=== PATIENT | male | born 1970 | race Caucasian/White ===

== ENCOUNTER 2017-02-18 11:47 | Inpatient (IN) | payer BC ==
[2017-02-18] MEDS ORDERED: Sodium Chloride 0.9% 10 ML Syringe FLUSH PRN (12:11)
[2017-02-18] MEDS ORDERED: Sodium Chloride 0.9% 1,000 ML IV ONE (12:11)
--- NOTE | 2017-02-18 12:18 | EDM.PDOC ---
ED HPI GENERAL MEDICAL PROBLEM - General Chief Complaint: Upper Extremity Injury/Pain Stated Complaint: Right arm swelling Time Seen by Provider: 02/18/17 12:00 Source of Information: Reports: Patient, Provider (BRIDGET Fernández called report from [facility] ), RN Notes Reviewed History Limitations: Reports: No Limitations - History of Present Illness INITIAL COMMENTS - FREE TEXT/NARRATIVE: 46 year old male presents to the ER after evaluation at [facility]. He presented to the walk-in clinic today due to reports of right arm swelling and discolored urine for the past 2 days. He is normally very active and works out on a regular basis. He just started working out at a local [employer] gym in [facility]. On Wednesday, he figures he did close to 100 pull ups. He then developed right arm swelling and discomfort. He later noticed dark colored urine. This morning he says his urine was clear. He says his arm pain is well controlled with Aleve. He was initially evaluated at [facility] and found to have a significantly elevated Ck. He was sent here for further management and need for admission. He says his pain is currently well controlled. He has no abdominal pain, nausea, vomiting or diarrhea. He has no chest pain or SOB. Right Arm Pain Score (Numeric/FACES): 2 - Related Data Allergies Allergy/AdvReac Type Severity Reaction Status Date / Time No Known Allergies Allergy Verified 02/18/17 11:54 Home Meds: Home Meds Cyanocobalamin (Vitamin B12) [Vitamin B12] 1,000 mcg PO DAILY 02/18/17 [History] Fish Oil/[place]-3 Fatty Acids [Fish Oil] 1 gm PO DAILY 02/18/17 [History] Multivitamin [One Daily] 1 each PO DAILY 02/18/17 [History] Past Medical History - Past Health History Medical/Surgical History: Denies Medical/Surgical History Social & Family History - Tobacco Use Smoking Status *Q: Never Smoker - Recreational Drug Use Recreational Drug Use: No Review of Systems - Review of Systems Review Of Systems: See Below Constitutional: Reports: No Symptoms. Denies: Chills, Diaphoresis, Fever Respiratory: Reports: No Symptoms. Denies: Shortness of Breath, Cough Cardiovascular: Reports: No Symptoms. Denies: Chest Pain GI/Abdominal: Reports: No Symptoms. Denies: Abdominal Pain, Diarrhea, Nausea, Vomiting Genitourinary: Reports: Other (dark colored urine ). Denies: Dysuria Musculoskeletal: Reports: Arm Pain, Muscle Pain Skin: Reports: No Symptoms Neurological: Reports: No Symptoms. Denies: Confusion, Dizziness, Headache, Numbness, Tingling, Weakness ED EXAM, GENERAL - Physical Exam Exam: See Below Exam Limited By: No Limitations General Appearance: Alert, WD/WN, No Apparent Distress Respiratory/Chest: No Respiratory Distress, Lungs Clear, Normal Breath Sounds Cardiovascular: Normal Peripheral Pulses, Regular Rate, Rhythm, No Murmur GI/Abdominal: Normal Bowel Sounds, Soft, Non-Tender, No Distention Extremities: Other (swelling noted to right bicep. no bruising or increased warmth noted. CMS intact distally. ) Neurological: Alert, Oriented, Normal Cognition, No Motor/Sensory Deficits Skin Exam: Warm, Dry, Intact Course - Vital Signs Last Recorded V/S: Last Vital Signs Temp 97.1 F 02/18/17 11:55 Pulse 57 L 02/18/17 11:55 Resp BP 155/88 H 02/18/17 11:55 Pulse Ox 100 02/18/17 11:55 - Orders/Labs/Meds Orders: Active Orders 24 hr Category Date Time Status Patient Status [ADT] Routine ADT 02/18/17 13:44 Ordered Peripheral IV Care [RC] . DIRECTED Care 02/18/17 12:11 Active Sodium Chloride 0.9% [Saline Flush] Med 02/18/17 12:11 Active 10 ml FLUSH ASDIRECTED PRN Peripheral IV Insertion Adult [OM.PC] Stat Oth 02/18/17 12:11 Ordered Medication Orders Sodium Chloride (Saline Flush) 10 ml FLUSH ASDIRECTED PRN PRN Reason: Keep Vein Open Last Admin: 02/18/17 12:34 Dose: 10 ml Meds: Medications Generic Name Dose Route Start Last Admin Trade Name Freq PRN Reason Stop Dose Admin Sodium Chloride 10 ml 02/18/17 12:11 02/18/17 12:34 Saline Flush FLUSH 10 ml ASDIRECTED PRN Administration Keep Vein Open Discontinued Medications Generic Name Dose Route Start Last Admin Trade Name Freq PRN Reason Stop Dose Admin Sodium Chloride 1,000 mls @ 999 mls/hr 02/18/17 12:11 02/18/17 12:33 Normal Saline IV 02/18/17 13:11 999 mls/hr ONETIME ONE Administration - Re-Assessments/Exams Free Text/Narrative Re-Assessment/Exam: Initial labs performed at [facility]. CBC normal. WBC 5.4. H&H 15.4 and 44.8. Platelets 193. CMP: Glucose 85, BUN 18, creatinine 1.0, Na 142, K 4.6, Cl 104, Co2 26, Ca 9.4, AST 165, ALT 64, Bili 1.6, eGFR 80. UA: normal. CK was performed in our lab and came back at 8148. IV placed and 1 liter NS bolus initiated. 02/18/17 13:[address] iGl who has accepted care of patient. Patient meets inpatient criteria. Departure - Departure Time of Disposition: 13:47 Disposition: Admitted As Inpatient 65 Condition: Good Clinical Impression: Rhabdomyolysis Qualifiers: Rhabdomyolysis type: non-traumatic Qualified Code(s): M62.82 - Rhabdomyolysis - Discharge Information Referrals: Jet Leija MD [Primary Care Provider] - Forms: ED Department Discharge - My Orders Last 24 Hours: My Active Orders 02/18/17 12:11 Peripheral IV Care [RC] . DIRECTED Sodium Chloride 0.9% [Saline Flush] 10 ml FLUSH ASDIRECTED PRN Peripheral IV Insertion Adult [OM.PC] Stat 02/18/17 13:44 Patient Status [ADT] Routine - Assessment/Plan Last 24 Hours: My Active Orders 02/18/17 12:11 Peripheral IV Care [RC] . DIRECTED Sodium Chloride 0.9% [Saline Flush] 10 ml FLUSH ASDIRECTED PRN Peripheral IV Insertion Adult [OM.PC] Stat 02/18/17 13:44 Patient Status [ADT] Routine
[2017-02-18] MEDS ORDERED: Lactated Ringers 1,000 ML ONE (14:25)
[2017-02-18] MEDS ORDERED: Lactated Ringers 1,000 ML IV ONE ×3 (14:33→16:40)
--- NOTE | 2017-02-18 15:14 | PCM.HP ---
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 It is associated with swelling. He also noted a change in urine, yesterday it was dark colored. On the day of admission, it appears clear yellow. He has had no trauma, CP, SOB, fever, chills. He denies the use of supplements. Onset of Symptoms: Reports: Today Duration of Symptoms: Reports: Hour(s):, Getting Worse Location: Reports: Upper Extremity, Right Quality: Reports: Pressure Improves with: Reports: Medication Worsens with: Reports: None Associated Symptoms: Reports: No Other Symptoms Right Arm Pain Score (Numeric/FACES): 2 - Related Data Allergies/Adverse Reactions: Allergies Allergy/AdvReac Type Severity Reaction Status Date / Time No Known Allergies Allergy Verified 02/18/17 11:54 Home Medications: Home Meds Cyanocobalamin (Vitamin B12) [Vitamin B12] 1,000 mcg PO DAILY 02/18/17 [History] Fish Oil/[place]-3 Fatty Acids [Fish Oil] 1 gm PO DAILY 02/18/17 [History] Multivitamin [One Daily] 1 each PO DAILY 02/18/17 [History] Past Medical History - Past Health History Medical/Surgical History: Denies Medical/Surgical History Social & Family History - Tobacco Use Smoking Status *Q: Never Smoker Second Hand Smoke Exposure: No - Recreational Drug Use Recreational Drug Use: No H&P Review of Systems - Review of Systems: Review Of Systems: See Below General: Reports: No Symptoms HEENT: Reports: No Symptoms Pulmonary: Reports: No Symptoms Cardiovascular: Reports: No Symptoms Gastrointestinal: Reports: No Symptoms Genitourinary: Reports: No Symptoms Musculoskeletal: Reports: Muscle Pain Skin: Reports: No Symptoms Psychiatric: Reports: No Symptoms Neurological: Reports: No Symptoms Hematologic/Lymphatic: Reports: No Symptoms Immunologic: Reports: No Symptoms Exam - Exam Exam: See Below - Vital Signs Vital Signs: Last Vital Signs Temp 36.5 C 02/18/17 13:59 Pulse 59 L 02/18/17 13:59 Resp 16 02/18/17 13:59 BP 123/68 02/18/17 13:59 Pulse Ox 100 02/18/17 13:59 Weight: 90.582 kg - Exam General: Alert, Oriented, Cooperative HEENT: Conjunctiva Clear, EACs Clear, EOMI, Nares Patent, Normal Nasal Septum, Pupils Equal, Pupils Reactive, PERRLA Neck: Supple, Trachea Midline Lungs: Normal Respiratory Effort Cardiovascular: Regular Rate, Regular Rhythm GI/Abdominal Exam: Normal Bowel Sounds, Soft, Non-Tender, No Organomegaly, No Distention (Male) Exam: Deferred Rectal (Males) Exam: Deferred Back Exam: Normal Inspection Extremities: Normal Inspection Skin: Warm Neurological: Cranial Nerves Intact Neuro Extensive - Mental Status: Alert, Oriented x3, Normal Mood/Affect, Normal Cognition, Memory Intact Neuro Extensive - Motor, Sensory, Reflexes: CN II-XII Intact Psychiatric: Alert, Normal Affect, Normal Mood *Q Meaningful Use (ADM) - VTE *Q VTE Criteria *Q: - Stroke *Q Stroke Criteria *Q: - AMI *Q AMI Criteria *Q: - Problem List (1) Rhabdomyolysis SNOMED Code(s): 319495288 ICD Code: M62.82 - RHABDOMYOLYSIS Status: Acute Current Visit: Yes Qualifiers: Rhabdomyolysis type: non-traumatic Qualified Code(s): M62.82 - Rhabdomyolysis Problem List Initiated/Reviewed/Updated: Yes Orders Last 24hrs: Active Orders 24 hr Category Date Time Status Up ad Rita [RC] ASDIRECTED Care 02/18/17 15:03 Active Regular Diet [DIET] Diet 02/18/17 Dinner Ordered Cyanocobalamin (Vitamin B12) [Vitamin B12] Med 02/19/17 09:00 Active 1,000 mcg PO DAILY Fish Oil/[place]-3 Fatty Acids [Fish Oil] Med 02/19/17 09:00 Active 1 gm PO DAILY Lactated Ringers [Ringers, Lactated] 1,000 ml Med 02/18/17 14:33 Active IV .BOLUS Multivitamins,Therapeutic [Thera] Med 02/19/17 09:00 Active 1 each PO DAILY Code Status [Resuscitation Status] Routine Resus Stat 02/18/17 15:03 Ordered Medication Orders Cyanocobalamin (Vitamin B12) 1,000 mcg PO DAILY ELY Fish Oil (Fish Oil) 1 gm PO DAILY ELY Lactated Ringer's (Ringers, Lactated) 1,000 mls @ 999 mls/hr IV .BOLUS ONE Stop: 02/18/17 15:33 Last Admin: 02/18/17 14:35 Dose: 999 mls/hr Multivitamins (Thera) 1 each PO DAILY ELY Sodium Chloride (Saline Flush) 10 ml FLUSH ASDIRECTED PRN PRN Reason: Keep Vein Open Last Admin: 02/18/17 12:34 Dose: 10 ml Assessment/Plan Comment:: Impression: Excessive muscle break down Rhabdomyolysis, preserved renal function Plan: Observation Aggressive hydration I/Os Daily labs DVT/GI prophylaxis DC 24-48 hours
[2017-02-18] MEDS: Lactated Ringers 1,000 ML IV SCH ×2 (17:43→21:07)
[2017-02-19] MEDS: Lactated Ringers 1,000 ML IV SCH ×2 (00:34→04:01)
[2017-02-19] MEDS ORDERED: Lactated Ringers 1,000 ML IV SCH ×2 (07:45→09:15)
[2017-02-19] MEDS: Multivitamins,Therapeutic Tab PO SCH (08:01)
[2017-02-19] MEDS: Cyanocobalamin (Vitamin B12) 1,000 MCG Tab PO SCH (08:01)
[2017-02-19] MEDS: Fish Oil/Omega-3 Fatty Acids 1 Gm Cap PO SCH (08:01)
[2017-02-19] MEDS ORDERED: Furosemide 20 MG/2 ML VIAL IVPUSH ONE (09:15)
--- NOTE | 2017-02-19 09:22 | PCM.PN ---
- General Info Date of Service: 02/19/17 Admission Dx/Problem (Free Text): Admission Diagnosis/Problem Admission Diagnosis/Problem Rhabdomyolysis Subjective Update: Follow Up Functional Status: Reports: Pain Controlled, Tolerating Diet, Ambulating, Urinating. Denies: New Symptoms - Review of Systems General: Denies: Fever, Weakness, Fatigue, Malaise, Chills HEENT: Reports: No Symptoms Pulmonary: Denies: Shortness of Breath Cardiovascular: Denies: Chest Pain Gastrointestinal: Denies: Abdominal Pain, Nausea, Vomiting Genitourinary: Reports: No Symptoms Musculoskeletal: Reports: No Symptoms, Other (No muscle ache/pain) Skin: Reports: Bruising (right antecubital). Denies: Cyanosis, Mottled, Pallor , Diaphoresis Neurological: Denies: Confusion, Dizziness, Seizure, Weakness Psychiatric: Denies: Depression, Anxiety, Agitation, Hallucinations Systems Review Comment:: NO significant overnight or acute issues. He is doing relatively well. His CK this am is at 9544. He has no new complaints but wants to go home. - Patient Data Vitals - Most Recent: Last Vital Signs Temp 36.8 C 02/19/17 08:05 Pulse 63 02/19/17 08:05 Resp 12 02/19/17 08:05 BP 147/98 H 02/19/17 08:05 Pulse Ox 100 02/19/17 08:05 Weight - Most Recent: 91.626 kg I&O - Last 24 Hours: Intake & Output 02/18/17 02/19/17 02/19/17 22:59 06:59 14:59 Intake Total 1160 4971 240 Output Total 1700 2800 Balance -540 2171 240 Lab Results Last 24 Hours: Laboratory Results - last 24 hr 02/18/17 02/19/17 Range/Units 19:55 05:40 Sodium 142 144 (136-145) mEq/L Potassium 3.9 4.3 (3.5-5.1) mEq/L Chloride 109 H 110 H (98-107) mEq/L Carbon Dioxide 25 26 (21-32) mEq/L Anion Gap 11.9 12.3 (5-15) BUN 14 11 (7-18) mg/dL Creatinine 1.0 0.9 (0.7-1.3) mg/dL Est Cr Clr Drug Dosing 97.26 108.07 mL/min Estimated GFR (MDRD) > 60 > 60 (>60) mL/min BUN/Creatinine Ratio 14.0 12.2 L (14-18) Glucose 99 105 (74-106) mg/dL Calcium 7.8 L 8.5 (8.5-10.1) mg/dL Magnesium 1.8 (1.8-2.4) mg/dl Creatine Kinase 69075 H 9544 H (39-308) U/L Med Orders - Current: Current Medications Cyanocobalamin (Vitamin B12) 1,000 mcg PO DAILY [facility] Last Admin: 02/19/17 08:01 Dose: 1,000 mcg Fish Oil (Fish Oil) 1 gm PO DAILY [facility] Last Admin: 02/19/17 08:01 Dose: 1 gm Sodium Chloride (Normal Saline) 1,000 mls @ 250 mls/hr IV ASDIRECTED [facility] Multivitamins (Thera) 1 each PO DAILY [facility] Last Admin: 02/19/17 08:01 Dose: 1 each Sodium Chloride (Saline Flush) 10 ml FLUSH ASDIRECTED PRN PRN Reason: Keep Vein Open Last Admin: 02/18/17 12:34 Dose: 10 ml Discontinued Medications Furosemide (Lasix) 20 mg IVPUSH ONETIME ONE Stop: 02/19/17 09:16 Last Admin: 02/19/17 09:17 Dose: 20 mg Sodium Chloride (Normal Saline) 1,000 mls @ 999 mls/hr IV ONETIME ONE Stop: 02/18/17 13:11 Last Admin: 02/18/17 12:33 Dose: 999 mls/hr Lactated Ringer's (Ringers, Lactated) Confirm Administered Dose 1,000 mls @ as directed .ROUTE .STK-MED ONE Stop: 02/18/17 14:26 Last Admin: 02/18/17 15:13 Dose: Not Given Lactated Ringer's (Ringers, Lactated) 1,000 mls @ 999 mls/hr IV .BOLUS ONE Stop: 02/18/17 15:33 Last Admin: 02/18/17 14:35 Dose: 999 mls/hr Lactated Ringer's (Ringers, Lactated) 1,000 mls @ 999 mls/hr IV .BOLUS ONE Stop: 02/18/17 16:36 Last Admin: 02/18/17 15:36 Dose: 999 mls/hr Lactated Ringer's (Ringers, Lactated) 1,000 mls @ 999 mls/hr IV .BOLUS ONE Stop: 02/18/17 17:40 Last Admin: 02/18/17 16:44 Dose: 999 mls/hr Lactated Ringer's (Ringers, Lactated) 1,000 mls @ 300 mls/hr IV ASDIRECTED ELY Last Admin: 02/19/17 04:01 Dose: 300 mls/hr Lactated Ringer's (Ringers, Lactated) 1,000 mls @ 100 mls/hr IV ASDIRECTED ELY Last Admin: 02/19/17 08:00 Dose: 100 mls/hr Lactated Ringer's (Ringers, Lactated) 1,000 mls @ 250 mls/hr IV ASDIRECTED ELY - Exam General: Alert, Oriented, Cooperative, No Acute Distress HEENT: Pupils Equal, Pupils Reactive, EOMI, Mucous Membr. Moist/[place] Neck: Supple, Trachea Midline, No JVD Lungs: Clear to Auscultation, Normal Respiratory Effort Cardiovascular: Regular Rate, Regular Rhythm GI/Abdominal Exam: Normal Bowel Sounds, Soft, Non-Tender, No Organomegaly, No Distention, No Abnormal Bruit (Male) Exam: Deferred Back Exam: Normal Inspection, Full Range of Motion Extremities: Normal Inspection, Normal Range of Motion, Non-Tender, No Pedal Edema, Normal Capillary Refill Peripheral Pulses: 3+: Posterior Tibial (L), Posterior Tibial (R), Dorsalis Pedis (L), Dorsalis Pedis (R) Skin: Warm, Dry, Intact, Other (bruise at right antecubital) Neurological: No New Focal Deficit Psy/Mental Status: Alert, Normal Affect, Normal Mood - Problem List Review Problem List Initiated/Reviewed/Updated: Yes - My Orders Last 24 Hours: My Active Orders 02/19/17 09:15 Sodium Chloride 0.9% [Normal Saline] 1,000 ml IV ASDIRECTED - Plan Plan:: Assessment/Plan: Acute: Rhabdomyolysis - S/p strenuous activity with cross fit - Preserved renal function - Continue current IV fluid - Change LR to NS once current fluid is over - He wants to go home today pending repeat CK level this afternoon Plan: He is clinically stable Will repeat CK at 1500; if level is at 7000 or lower, he can be safely discharged today Continue current treatment Routine AM Labs DVT/GI prophylaxis Possible d/c in 1-2 days
[2017-02-19] MEDS: Sodium Chloride 0.9% 1,000 ML IV SCH ×4 (12:55→22:41)
[2017-02-20] MEDS: Sodium Chloride 0.9% 1,000 ML IV SCH ×3 (01:31→07:56)
[2017-02-20] MEDS: Multivitamins,Therapeutic Tab PO SCH (09:16)
[2017-02-20] MEDS: Fish Oil/Omega-3 Fatty Acids 1 Gm Cap PO SCH (09:16)
[2017-02-20] MEDS: Cyanocobalamin (Vitamin B12) 1,000 MCG Tab PO SCH (09:16)
--- NOTE | 2017-02-20 09:34 | PCM.DCSUM1 ---
Discharge Summary - Hospital Course Brief History: This is a 46 year old white male with no past medical hx who comes in with complaints of stiff/painful arm associated dark colored urine and was admitted for medical management of rhabdomyolysis. - Discharge Data Discharge Date: 02/20/17 Discharge Disposition: Home, Self-Care 01 Condition: Good - Discharge Diagnosis/Problem(s) (1) Rhabdomyolysis SNOMED Code(s): 791490573 ICD Code: M62.82 - RHABDOMYOLYSIS Status: Acute Current Visit: Yes Qualifiers: Rhabdomyolysis type: non-traumatic Qualified Code(s): M62.82 - Rhabdomyolysis - Patient Summary/Data Operative Procedure(s) Performed: None Complications: None Consults: None Labs Pending at D/C: None Recommended Follow-up Testing/Procedures: None Planned Operative Procedure(s) after DC: None Hospital Course: Patient was primarily admitted for medical management of rhabdomyolysis. He presented to us with significantly elevated CK levels associated with dark colored urine after he embarked on a new exercise regimen i.e. cross fit. He denied any previous hx/o in the past. On this admission, he received mainly supportive care along with aggressive hydration. The patient slowly improved on this regimen. His CK level was down to 8763 from [address] on presentation. Patient was very eager to go home and would like to continue to get better at home. His agreed for him to go home after discussing his clinical progress with her. Patient was advised to rest and continue with hydration. He was further advised to do things in moderation and resume usual routine activities in 1 week. The patient expressed understanding and in agreement with the plans as discussed above. All questions were answered. - Patient Instructions Diet: Usual Diet as Tolerated Activity: As Tolerated, No Strenuous Activities, Rest and Relax Today Driving: May Drive Today Showering/Bathing: May Shower Notify Provider of: Fever, Increased Pain, Swelling and Redness, Nausea and/or Vomiting Other/Special Instructions: - Rest and resume usual routine activities in 1 week. - Continue to drink plenty of water. - Remember to do things in moderation and do not overexert yourself. - Follow up with your family doctor in 1 week as needed - Discharge Plan Home Medications: Home Meds Cyanocobalamin (Vitamin B12) [Vitamin B12] 1,000 mcg PO DAILY 02/18/17 [History] Fish Oil/[place]-3 Fatty Acids [Fish Oil] 1 gm PO DAILY 02/18/17 [History] Multivitamin [One Daily] 1 each PO DAILY 02/18/17 [History] Patient Handouts: Rhabdomyolysis Referrals: Jet Leija MD [Primary Care Provider] - - Discharge Summary/Plan Comment DC Time >30 min.: Yes (45 mins) Discharge Summary/Plan Comment: Discharge to Home - General Info Date of Service: 02/20/17 Admission Dx/Problem (Free Text: Admission Diagnosis/Problem Admission Diagnosis/Problem Rhabdomyolysis Subjective Update: Follow Up Functional Status: Reports: Pain Controlled, Tolerating Diet, Ambulating, Urinating. Denies: New Symptoms - Review of Systems General: Denies: Fever, Weakness, Fatigue, Malaise, Chills, Night Sweats HEENT: Reports: No Symptoms Pulmonary: Denies: Shortness of Breath Cardiovascular: Denies: Chest Pain, Palpitations, Dyspnea on Exertion, Edema, Lightheadedness Gastrointestinal: Denies: Abdominal Pain, Nausea, Vomiting Genitourinary: Reports: No Symptoms Musculoskeletal: Reports: No Symptoms Skin: Denies: Cyanosis, Jaundice, Mottled, Pallor, Diaphoresis, Pruritis Neurological: Denies: Confusion, Difficulty Walking, Weakness, Gait Disturbance Psychiatric: Denies: Depression, Anxiety, Agitation, Hallucinations Systems Review Comment: No overnight or acute issues. He is doing relatively well. He has no complaints but very eager to go home. - Patient Data Vitals - Most Recent: Last Vital Signs Temp 36.5 C 02/20/17 07:25 Pulse 66 02/20/17 07:25 Resp 16 02/20/17 07:25 BP 135/92 H 02/20/17 07:25 Pulse Ox 99 02/20/17 07:25 Weight - Most Recent: 91.217 kg I&O - Last 24 hours: Intake & Output 02/19/17 02/20/17 02/20/17 22:59 06:59 14:59 Intake Total 3482 5059 Output Total 3000 2300 Balance 485 4842 Lab Results - Last 24 hrs: Laboratory Results - last 24 hr 02/19/17 02/20/17 Range/Units 15:10 05:58 Sodium 142 (136-145) mEq/L Potassium 4.0 (3.5-5.1) mEq/L Chloride 108 H (98-107) mEq/L Carbon Dioxide 25 (21-32) mEq/L Anion Gap 13.0 (5-15) BUN 9 (7-18) mg/dL Creatinine 0.9 (0.7-1.3) mg/dL Est Cr Clr Drug Dosing 108.07 mL/min Estimated GFR (MDRD) > 60 (>60) mL/min BUN/Creatinine Ratio 10.0 L (14-18) Glucose 106 (74-106) mg/dL Calcium 7.9 L (8.5-10.1) mg/dL Creatine Kinase 99955 H 8763 H (39-308) U/L Med Orders - Current: Current Medications Cyanocobalamin (Vitamin B12) 1,000 mcg PO DAILY [facility] Last Admin: 02/20/17 09:16 Dose: 1,000 mcg Fish Oil (Fish Oil) 1 gm PO DAILY [facility] Last Admin: 02/20/17 09:16 Dose: 1 gm Sodium Chloride (Normal Saline) 1,000 mls @ 350 mls/hr IV ASDIRECTED ELY Last Admin: 02/20/17 07:56 Dose: 350 mls/hr Multivitamins (Thera) 1 each PO DAILY [facility] Last Admin: 02/20/17 09:16 Dose: 1 each Sodium Chloride (Saline Flush) 10 ml FLUSH ASDIRECTED PRN PRN Reason: Keep Vein Open Last Admin: 02/18/17 12:34 Dose: 10 ml Discontinued Medications Furosemide (Lasix) 20 mg IVPUSH ONETIME ONE Stop: 02/19/17 09:16 Last Admin: 02/19/17 09:17 Dose: 20 mg Sodium Chloride (Normal Saline) 1,000 mls @ 999 mls/hr IV ONETIME ONE Stop: 02/18/17 13:11 Last Admin: 02/18/17 12:33 Dose: 999 mls/hr Lactated Ringer's (Ringers, Lactated) Confirm Administered Dose 1,000 mls @ as directed .ROUTE .STK-MED ONE Stop: 02/18/17 14:26 Last Admin: 02/18/17 15:13 Dose: Not Given Lactated Ringer's (Ringers, Lactated) 1,000 mls @ 999 mls/hr IV .BOLUS ONE Stop: 02/18/17 15:33 Last Admin: 02/18/17 14:35 Dose: 999 mls/hr Lactated Ringer's (Ringers, Lactated) 1,000 mls @ 999 mls/hr IV .BOLUS ONE Stop: 02/18/17 16:36 Last Admin: 02/18/17 15:36 Dose: 999 mls/hr Lactated Ringer's (Ringers, Lactated) 1,000 mls @ 999 mls/hr IV .BOLUS ONE Stop: 02/18/17 17:40 Last Admin: 02/18/17 16:44 Dose: 999 mls/hr Lactated Ringer's (Ringers, Lactated) 1,000 mls @ 300 mls/hr IV ASDIRECTED [facility]Y Last Admin: 02/19/17 04:01 Dose: 300 mls/hr Lactated Ringer's (Ringers, Lactated) 1,000 mls @ 100 mls/hr IV ASDIRECTED ELY Last Admin: 02/19/17 08:00 Dose: 100 mls/hr Lactated Ringer's (Ringers, Lactated) 1,000 mls @ 250 mls/hr IV ASDIRECTED ELY Sodium Chloride (Normal Saline) 1,000 mls @ 250 mls/hr IV ASDIRECTED ELY Last Admin: 02/19/17 16:59 Dose: 250 mls/hr - Exam General: Reports: Alert, Oriented, Cooperative, No Acute Distress, Mild Distress HEENT: Reports: Pupils Equal, Pupils Reactive, EOMI, Mucous Membr. Moist/[place] Neck: Reports: Supple, Trachea Midline, No JVD, No Thyromegaly Lungs: Reports: Clear to Auscultation, Normal Respiratory Effort Cardiovascular: Reports: Regular Rate, Regular Rhythm GI/Abdominal Exam: Normal Bowel Sounds, Soft, Non-Tender, No Organomegaly, No Distention, No Abnormal Bruit, No Mass (Male) Exam: Deferred Rectal (Males) Exam: Deferred Back Exam: Reports: Normal Inspection, Full Range of Motion Extremities: Normal Inspection, Normal Range of Motion, Non-Tender, No Pedal Edema, Normal Capillary Refill Skin: Reports: Warm, Dry, Intact Neurological: Reports: No New Focal Deficit Psy/Mental Status: Reports: Alert, Normal Affect, Normal Mood *Q Meaningful Use (DIS) - VTE *Q VTE Criteria *Q: - Stroke *Q Stroke Criteria *Q: - AMI *Q AMI Criteria *Q:
[2017-02-20] MEDS ORDERED: FLU Vacc QS 2017-18 (6mos UP)/PF 60 MCG/0.5 ML Syringe IM ONE (11:00)
== END 2017-02-20 10:35 | disposition home or self-care (01) | DRG 351 ==
LOC: JD.ED 11:47 → UNDOADMIN 13:42 → JD.MS 13:42
PROVIDERS: ADMIT Internal Medicine Cardiovascular Disease; ATTEND Internal Medicine Cardiovascular Disease
DX: M62.82 Rhabdomyolysis (principal)
CPT/HCPCS: 36415; 80048; 82550; 83735; 90471; 90686; 96360; 99284; 99284-25; A9270-GY; J7040; J7050; J7120

== ENCOUNTER 2021-03-23 17:07 | Emergency (ER) | payer BC ==
--- NOTE | 2021-03-23 18:20 | EDM.PDOC ---
ED HPI GENERAL MEDICAL PROBLEM - General Chief Complaint: Back Pain or Injury Stated Complaint: BACK PAIN Time Seen by Provider: 03/23/21 17:51 Source of Information: Reports: Patient History Limitations: Reports: No Limitations - History of Present Illness INITIAL COMMENTS - FREE TEXT/NARRATIVE: The patient presents with right hip and right leg pain. This has been going on for about 4 weeks. He was doing some hip thrusts at the gym and felt mild pain to the right low back and more pain to the hip and groin area. He went to his chiropractor, had a message, saw his primary care doctor and physical therapy. Things would help for a short time but the pain would come back. He has pain to the buttocks area and it goes down his right leg. He is getting numbness to the right leg and some weakness. He is having trouble walking up stairs now with that right leg. He has no bowel or bladder problems. Onset: Gradual Duration: Week(s): (4) Location: Reports: Back, Lower Extremity, Right Quality: Reports: Ache Severity: Moderate Improves with: Reports: Immobilization Worsens with: Reports: Movement Context: Denies: Trauma Associated Symptoms: Reports: No Other Symptoms Right Hip Pain Score (Numeric/FACES): 3 Right Groin Pain Score (Numeric/FACES): 8 Right Leg Pain Score (Numeric/FACES): 8 - Related Data Allergies Allergy/AdvReac Type Severity Reaction Status Date / Time No Known Allergies Allergy Verified 02/18/17 11:54 Home Meds: Home Meds Cyanocobalamin (Vitamin B12) [Vitamin B12] 1,000 mcg PO DAILY 02/18/17 [History] Fish Oil/[place]-3 Fatty Acids [Fish Oil] 1 gm PO DAILY 02/18/17 [History] Multivitamin [One Daily] 1 each PO DAILY 02/18/17 [History] Cholecalciferol (Vitamin D3) [Vitamin D3] 1,000 units PO DAILY 03/23/21 [History] Naproxen 500 mg PO BID 03/23/21 [History] Past Medical History - Past Health History Medical/Surgical History: Denies Medical/Surgical History ED ROS GENERAL - Review of Systems Review Of Systems: See Below Constitutional: Reports: No Symptoms HEENT: Reports: No Symptoms Respiratory: Reports: No Symptoms Cardiovascular: Reports: No Symptoms Endocrine: Reports: No Symptoms GI/Abdominal: Reports: No Symptoms : Reports: No Symptoms Musculoskeletal: Reports: Back Pain, Leg Pain (right) Skin: Reports: No Symptoms Neurological: Reports: No Symptoms ED EXAM,LOWER BACK PAIN/INJURY - Physical Exam Exam: See Below Exam Limited By: No Limitations General Appearance: Alert, No Apparent Distress Ears: Normal External Exam Nose: Normal Inspection Head: Atraumatic, Normocephalic Neck: Normal Inspection Respiratory/Chest: No Respiratory Distress, Lungs Clear, Normal Breath Sounds Cardiovascular: Regular Rate, Rhythm, No Edema, No Murmur GI/Abdominal: Soft, Non-Tender, No Organomegaly, No Mass Back Exam: Normal Inspection Extremities: Other (Pain upon palpation to the right buttocks. Good sensation distally. Mild weakness as compared to the left leg. Good pulses distally.) Course - Orders/Labs/Meds Orders: Active Orders 24 hr Category Date Time Status Hip Min 2V or 3V w Pelvis Rt [CR] Stat Exams 03/23/21 18:11 Taken Lumbar Spine 2 or 3V [CR] Stat Exams 03/23/21 18:10 Taken methylPREDNISolone Sod Succ [Solu-MEDROL] Med 03/23/21 19:07 Once 125 mg IM ONETIME ONE - Re-Assessments/Exams Free Text/Narrative Re-Assessment/Exam: 03/23/21 18:23 I ordered an x-ray of his lumbar spine and right hip with pelvis. 03/23/21 19:07 His x-rays look good. I am concerned he has sciatica and lower back issues and needs and MRI of his back. He has some numbness and weakness to the right leg. I will put in an order for an MRI of his lumbar spine. Departure - Departure Time of Disposition: 19:10 Disposition: Home, Self-Care 01 Condition: Good Clinical Impression: Sciatica Qualifiers: Laterality: right Qualified Code(s): M54.31 - Sciatica, right side - Discharge Information *PRESCRIPTION DRUG MONITORING PROGRAM REVIEWED*: Not Applicable *COPY OF PRESCRIPTION DRUG MONITORING REPORT IN PATIENT GABINO: Not Applicable Referrals: Jet Leija MD [Primary Care Provider] - 2 Days Forms: ED Department Discharge Additional Instructions: Take your medication as prescribed. Keep going to therapy. I have put an order in for an MRI of your low back. Someone from our radiology department will call you. Keep in contact with Dr Jaimes. He may be able to get you in sooner with an MRI. Please return if you are worse. - My Orders Last 24 Hours: My Active Orders 03/23/21 18:10 Lumbar Spine 2 or 3V [CR] Stat 03/23/21 18:11 Hip Min 2V or 3V w Pelvis Rt [CR] Stat 03/23/21 19:07 methylPREDNISolone Sod Succ [Solu-MEDROL] 125 mg IM ONETIME ONE - Assessment/Plan Last 24 Hours: My Active Orders 03/23/21 18:10 Lumbar Spine 2 or 3V [CR] Stat 03/23/21 18:11 Hip Min 2V or 3V w Pelvis Rt [CR] Stat 03/23/21 19:07 methylPREDNISolone Sod Succ [Solu-MEDROL] 125 mg IM ONETIME ONE
[2021-03-23] MEDS ORDERED: methylPREDNISolone Sodium Succinate 125 MG/2 ML SDV IM ONE (19:07)
--- NOTE | 2021-03-24 07:13 | CR ---
Lumbar spine: AP, lateral and coned-down lateral views centered to the lumbosacral junction were obtained. Comparison: No prior lumbar spine imaging is available. Severe disc space narrowing is noted at L5-S1 with mild vacuum phenomena. Small posterior osteophytes are seen at L5-S1 as well as larger anterior osteophytes . Smaller osteophytes are noted at L3-4 and L4-5. Mild disc space narrowing is seen posteriorly at L4-5. Other disc spaces are preserved. Pedicles are intact. Visualized transverse and spinous processes are intact. No abnormal subluxation is seen. Calcification measuring 1.4 cm is seen within the upper right abdomen which could represent gallstone or adrenal calcification. Impression: 1. Degenerative change within the lumbar spine most prominent at L5-S1. 2. Calcification within the upper right abdomen. Diagnostic code #3
--- NOTE | 2021-03-24 07:13 | CR ---
Pelvis and right hip: AP view of the pelvis was obtained as well as AP and frog-leg lateral views of the right hip. Comparison: No prior hip or pelvis exam is available. Joint spaces within both hips are preserved. Sacroiliac joints appear within normal limits. Cyst is noted within the lateral superior acetabulum of the right hip. This is compatible with minimal degenerative change. No acute fracture or other bony abnormality is appreciated. Impression: 1. Minimal degenerative change within the right hip. 2. AP pelvis study and 2-view right hip exam is otherwise unremarkable. Diagnostic code #2
== END 2021-03-23 19:25 | disposition home or self-care (01) ==
LOC: JD.ED 17:07
DX: M54.31 Sciatica, right side (principal)
CPT/HCPCS: 72100; 73502; 96372; 99283; J2930